=== PATIENT | male | born 1975 | race Caucasian/White ===

== ENCOUNTER 2016-10-20 20:27 | Emergency (ER) | payer OTHER ==
--- NOTE | 2016-10-20 21:46 | ED ---
Suleiman Borden SooYoung, scribed for Jayden Guerrier MD on 10/20/16 at 2141 . HPI Diabetic - HPI Summary HPI Summary: A 41 y/o M presents to ED with c/o of cold bilat hands and feet onset intermittently yesterday and all day today. No similar episodes previously. Pt sees Dr. Hogan, and last saw him in July or August of this year. He states in ED that his hands are feeling better, but his feet are still a little cold. - History Of Current Complaint Chief Complaint: EDGeneral Time Seen by Provider: 10/20/16 21:25 Hx Obtained From: Patient Onset/Duration: Lasting Days - onset yesterday, Still Present Severity Initially: Mild Severity Currently: Mild - Allergies/Home Medications Allergies/Adverse Reactions: Allergies Allergy/AdvReac Type Severity Reaction Status Date / Time No Known Allergies Allergy Verified 03/02/13 16:46 PMH/Surg Hx/FS Hx/Imm Hx Previously Healthy: No Endocrine/Hematology History: Reports: Hx Diabetes Cardiovascular History: Reports: Hx Hypertension Infectious Disease History: No Infectious Disease History: Denies: Traveled Outside the [place] in Last 30 Days - Family History Known Family History: Positive: Cardiac Disease - multiple MIs at early age on paternal side; father CABG, Hypertension, Diabetes - Social History Occupation: Unemployed Lives: With Family Hx Substance Use: No Substance Use Type: Reports: None Review of Systems Positive: Other - pos: cold/numb to hands and feet. Negative: Fever All Other Systems Reviewed And Are Negative: Yes Physical Exam Triage Information Reviewed: Yes Vital Signs On Initial Exam: Initial Vitals Temp Pulse Resp BP Pulse Ox 98.4 F 78 18 141/83 100 10/20/16 20:27 10/20/16 20:27 10/20/16 20:27 10/20/16 20:27 10/20/16 20:27 Vital Signs Reviewed: Yes Appearance: Positive: Well-Appearing, No Pain Distress Skin: Positive: Warm Head/Face: Positive: Normal Head/Face Inspection Eyes: Positive: ANGELLA ENT: Positive: Hearing grossly normal Neck: Positive: Supple Respiratory/Lung Sounds: Positive: Breath Sounds Present Cardiovascular: Positive: RRR Abdomen Description: Positive: Nontender, Soft Bowel Sounds: Positive: Present Musculoskeletal: Positive: Strength/ROM Intact Neurological: Positive: Sensory/Motor Intact, Alert, Oriented to Person Place, Time, Normal Gait Psychiatric: Positive: Affect/Mood Appropriate Diagnostics - Vital Signs Vital Signs Temp Pulse Resp BP Pulse Ox 10/20/16 20:33 98.4 F 78 18 141/83 100 10/20/16 20:27 98.4 F 78 18 141/83 100 - Laboratory Result Diagrams: 10/20/16 22:05 10/20/16 22:05 Lab Statement: Any lab studies that have been ordered have been reviewed, and results considered in the medical decision making process. Re-Evaluation - Re-Evaluation First Eval Change: Improved - results d/w pt Diabetic Course/Dx - Diagnoses Provider Diagnoses: Paresthesia Discharge - Discharge Plan Condition: Stable Disposition: HOME Patient Education Materials: Paresthesia (ED) Referrals: Srini Hogan MD [Primary Care Provider] - 2 Days Additional Instructions: Follow up with your primary care provider in the next two days. Please return to the ED if you experience new or worsening symptoms. The documentation as recorded by the Suleiman rainey SooYoung accurately reflects the service I personally performed and the decisions made by , Jayden Guerrier MD.
[2016-10-20 22:25] LABS: Hematocrit 44 % (42-52); Hemoglobin 15.6 g/dl (14.0-18.0); Mean Corpuscular HGB Conc 35 g/dl (31-36); Mean Corpuscular Hemoglobin 32 pg (27-31); Mean Corpuscular Volume 90 fL (80-94); Mean Platelet Volume 8 um3 (7.4-10.4); Red Blood Count 4.89 10^6/ul (4.0-5.4); Red Cell Distribution Width 13 % (10.5-15); White Blood Count 10.4 10^3/ul (3.5-10.8)
[2016-10-20 22:36] LABS: Albumin 4.8 g/dL (3.2-5.2); EGFR African American 97.9 (>60); EGFR Non-African American 76.1 (>60); Globulin 2.3 g/dL (2-4); Potassium 3.5 mmol/L (3.5-5.0); Total Bilirubin 1.5 mg/dL (0.2-1.0); Total Protein 7.1 g/dL (6.4-8.9)
[2016-10-20 23:42] LABS: Urine Bilirubin Negative (Negative); Urine Glucose Negative (Negative); Urine Nitrite Negative (Negative)
[2016-10-21 00:25] VITALS: BP 128/81
== END 2016-10-21 00:21 | disposition home or self-care (01) ==
LOC: ED 20:27
DX: R20.9 Unspecified disturbances of skin sensation (principal)
CPT/HCPCS: 36415; 80053; 81003; 85025; 99282

== ENCOUNTER 2017-11-27 13:35 | Emergency (ER) | payer OTHER ==
[2017-11-27 15:03] LABS: ABS Basophils 0.1 10^3/ul (0-0.2); ABS Eosinophils 0.1 10^3/ul (0-0.6); ABS Monocytes 0.4 10^3/ul (0-0.8); ABS Neutrophils 3.5 10^3/ul (1.5-7.7); ABS Nucleated RBC 0 10^3/ul; Eosinophil % 1.3 % (0-6); Hematocrit 40 % (42-52); Hemoglobin 14.3 g/dl (14.0-18.0); Lymphocyte % 19.2 % (25-47); Mean Corpuscular HGB Conc 36 g/dl (31-36); Mean Corpuscular Hemoglobin 33 pg (27-31); Mean Corpuscular Volume 91 fL (80-94); Mean Platelet Volume 8.7 um3 (7.4-10.4); Nucleated Red Blood Cells % 0.1; Platelet Count 165 10^3/ul (150-450); Red Blood Count 4.36 10^6/ul (4.00-5.40); Red Cell Distribution Width 13 % (10.5-15)
[2017-11-27 15:04] LABS: Urine Appearance Clear; Urine Blood Negative (Negative); Urine Color Yellow; Urine Ketones Negative (Negative); Urine Protein Negative (Negative); Urine Specific Gravity 1.016 (1.010-1.030); Urine Urobilinogen Negative (Negative)
--- NOTE | 2017-11-27 15:07 | RAD ---
INDICATION: Periumbilical pain COMPARISON: None TECHNIQUE: Noncontrast axial source images were obtained from the hemidiaphragms to the symphysis pubis. This examination was ordered using a renal stone protocol which is performed without oral or intravenous contrast and therefore has inherent limitations when used to evaluate other intra-abdominal or intrapelvic pathology. Consider conventional contrast enhanced imaging if clinically. Lung bases: The lung bases are clear. Liver: The liver is normal in size. Noncontrast imaging shows no evidence of a hepatic mass or ductal dilatation. Gallbladder: There are no calcified gallstones. There is no evidence of wall thickening or pericholecystic fluid.. Spleen: There is moderate splenomegaly. Pancreas: Noncontrast imaging shows no pancreatic mass or ductal dilitation. Adrenal glands: No masses are identified. Kidneys/Bladder: There is no evidence of nephrolithiasis or CT evidence of hydronephrosis. Noncontrast imaging shows no evidence of a renal mass. The bladder is unremarkable.. Adenopathy: There is no evidence of intraperitoneal or retroperitoneal adenopathy. Evaluation is limited without oral contrast. Fluid collections: There are no free or localized fluid collections. Vessels: The aorta and iliac vessels are normal in caliber. There are no significant atherosclerotic changes. The IVC appears normal Pelvic organs: The prostate and seminal vesicles appear normal GI tract: Evaluation of the bowel is limited without oral contrast. The stomach, small bowel, and lower GI tract appear grossly normal. There are no obstructive findings. The appendix is visualized and appears normal. Soft tissues: There is a small fat-containing periumbilical hernia. Osseous structures: There are no acute osseous findings. IMPRESSION: 1. Moderate splenomegaly. 2. Small fat-containing periumbilical hernia. 3. No CT evidence of urolithiasis.
[2017-11-27 15:17] LABS: EGFR Non-African American 81.8 (>60)
[2017-11-27 16:46] VITALS: BP 153/96
--- NOTE | 2017-11-27 16:52 | ED ---
Bhavin Borden Angela, scribed for Kevyn Henry MD on 11/27/17 at 1453 . Abdominal Pain/Male - HPI Summary HPI Summary: This pt is a 42 y/o male presenting to [facility] c/o abd pain x2 days. Pt reports he recently went camping and everything was fine until the last day when he left , two days ago. He developed abd pain which he states "it feels like when you eat something bad, gassy maybe" "it's weird, I can't explain it." Denies trauma or injury to abd. His pain is not aggravated with palpation. His last bowel movement was this morning and notes it was normal. Denies nausea, vomiting, diarrhea, constipation, urinary symptoms, melena, tarry stools. He has never had this pain in the past. PMHx includes umbilical hernia x1 year, psoriasis, diabetes. Denies any abdominal surgeries. Pt has a rash on abd and reports it is his psoriasis. - History of Current Complaint Chief Complaint: EDAbdPain Stated Complaint: ABD PAIN Time Seen by Provider: 11/27/17 14:35 Hx Obtained From: Patient Onset/Duration: Lasting Days, Still Present Timing: Lasting Days Severity Currently: Moderate Pain Intensity: 5 Pain Scale Used: 0-10 Numeric Location: Diffuse Radiates: No Aggravating Factor(s): Nothing Alleviating Factor(s): Nothing Associated Signs And Symptoms: Negative: Cough, Constipation, Urinary Symptoms, Nausea, Vomiting, Diarrhea, Other - melena, tarry stools - Allergies/Home Medications Allergies/Adverse Reactions: Allergies Allergy/AdvReac Type Severity Reaction Status Date / Time No Known Allergies Allergy Verified 11/27/17 13:42 Home Medications: Home Medications Aspirin 81 mg CHEW TAB* [Aspirin Low Dose TAB*] 81 mg PO DAILY 11/27/17 [ History Confirmed 11/27/17] Gemfibrozil TAB* [Lopid TAB*] 600 mg PO DAILY 11/27/17 [History Confirmed 11/27] Lisinopril TAB* [Prinivil TAB 5 MG*] 5 mg PO DAILY 11/27/17 [History Confirmed 11/27/17] Omeprazole CAP* [Prilosec CAP* 20 MG] 20 mg PO DAILY 11/27/17 [History Confirmed 11/27/17] metFORMIN* [Glucophage 500 MG TAB *] 500 mg PO BID 11/27/17 [History Confirmed 11/27/17] PMH/Surg Hx/FS Hx/Imm Hx Endocrine/Hematology History: Reports: Hx Diabetes Cardiovascular History: Reports: Hx Hypertension Infectious Disease History: No Infectious Disease History: Denies: Traveled Outside the [place] in Last 30 Days - Family History Known Family History: Positive: Cardiac Disease - multiple MIs at early age on paternal side; father CABG, Hypertension, Diabetes - Social History Alcohol Use: Rare Hx Substance Use: No Substance Use Type: Reports: None Smoking Status (MU): Unknown if Ever Smoked Review of Systems Negative: Fever, Chills Positive: Abdominal Pain. Negative: Vomiting, Diarrhea, Nausea, Other - constipation Positive: no symptoms reported, see HPI. Negative: dysuria, frequency, hematuria, urgency Positive: Bruising - around abdomen All Other Systems Reviewed And Are Negative: Yes Physical Exam - Summary Physical Exam Summary: Appearance: The patient is well-nourished in no acute distress and in no acute pain. Skin: The skin is warm and dry and skin color reflects adequate perfusion. HEENT: The head is normocephalic and atraumatic. The pupils are equal and reactive. The conjunctivae are clear and without drainage. Nares are patent and without drainage. Mouth reveals moist mucous membranes and the throat is without erythema and exudate. The external ears are intact. The ear canals are patent and without drainage. The tympanic membranes are intact. Neck: the neck is supple with full range of motion and non-tender. There are no carotid bruits. There is no neck vein distension. Respiratory: Chest is non-tender. Lungs are clear to auscultation and breath sounds are symmetrical and equal. Cardiovascular: Heart is regular rate and rhythm. There is no murmur or rub auscultated. There is no peripheral edema and pulses are symmetrical and equal. Abdomen: The abdomen is soft and non-tender. There are normal bowel sounds heard in all four quadrants and there is no organomegaly palpated. Musculoskeletal: There is no back tenderness noted. Extremities are non-tender with full range of motion. There is good capillary refill. There is no peripheral edema or calf tenderness elicited. Neurological: Patient is alert and oriented to person, place and time. Psychiatric: The patient has an appropriate affect and does not exhibit any anxiety or depression. Triage Information Reviewed: Yes Vital Signs On Initial Exam: Initial Vitals Temp Pulse Resp BP Pulse Ox 98.5 F 88 14 130/91 98 11/27/17 13:39 11/27/17 13:39 11/27/17 13:39 11/27/17 13:39 11/27/17 13:39 Vital Signs Reviewed: Yes Diagnostics - Vital Signs Vital Signs Temp Pulse Resp BP Pulse Ox 11/27/17 13:39 98.5 F 88 14 130/91 98 - Laboratory Lab Results: Lab Results 11/27/17 11/27/17 11/27/17 Range/Units 14:49 14:49 14:49 WBC 5.0 (3.5-10.8) 10^3/ul RBC 4.36 (4.00-5.40) 10^6/ul Hgb 14.3 (14.0-18.0) g/dl Hct 40 L (42-52) % MCV 91 (80-94) fL MCH 33 H (27-31) pg MCHC 36 (31-36) g/dl RDW 13 (10.5-15) % Plt Count 165 (150-450) 10^3/ul MPV 8.7 (7.4-10.4) um3 Neut % (Auto) 70.0 (38-83) % Lymph % (Auto) 19.2 L (25-47) % Tate % (Auto) 8.3 H (0-7) % Eos % (Auto) 1.3 (0-6) % Baso % (Auto) 1.2 (0-2) % Absolute Neuts (auto) 3.5 (1.5-7.7) 10^3/ul Absolute Lymphs (auto) 1.0 (1.0-4.8) 10^3/ul Absolute Monos (auto) 0.4 (0-0.8) 10^3/ul Absolute Eos (auto) 0.1 (0-0.6) 10^3/ul Absolute Basos (auto) 0.1 (0-0.2) 10^3/ul Absolute Nucleated RBC 0 10^3/ul Nucleated RBC % 0.1 Sodium 137 (135-145) mmol/L Potassium 3.9 (3.5-5.0) mmol/L Chloride 102 (101-111) mmol/L Carbon Dioxide 25 (22-32) mmol/L Anion Gap 10 (2-11) mmol/L BUN 11 (6-24) mg/dL Creatinine 1.01 (0.67-1.17) mg/dL Est GFR ( Amer) 99.0 (>60) Est GFR (Non-Af Amer) 81.8 (>60) BUN/Creatinine Ratio 10.9 (8-20) Glucose 137 H (70-100) mg/dL Lactic Acid 1.0 (0.5-2.0) mmol/L Calcium 9.4 (8.6-10.3) mg/dL Total Bilirubin 1.00 (0.2-1.0) mg/dL AST 35 (13-39) U/L ALT 50 (7-52) U/L Alkaline Phosphatase 64 (34-104) U/L C-Reactive Protein 5.62 (<8.01) mg/L Total Protein 6.4 (6.4-8.9) g/dL Albumin 4.2 (3.2-5.2) g/dL Globulin 2.2 (2-4) g/dL Albumin/Globulin Ratio 1.9 (1-3) Lipase 29 (11.0-82.0) U/L Urine Color Urine Appearance Urine pH (5-9) Ur Specific Benson (1.010-1.030) Urine Protein (Negative) Urine Ketones (Negative) Urine Blood (Negative) Urine Nitrate (Negative) Urine Bilirubin (Negative) Urine Urobilinogen (Negative) Ur Leukocyte Esterase (Negative) Urine Glucose (Negative) 11/27/17 Range/Units 14:50 WBC (3.5-10.8) 10^3/ul RBC (4.00-5.40) 10^6/ul Hgb (14.0-18.0) g/dl Hct (42-52) % MCV (80-94) fL MCH (27-31) pg MCHC (31-36) g/dl RDW (10.5-15) % Plt Count (150-450) 10^3/ul MPV (7.4-10.4) um3 Neut % (Auto) (38-83) % Lymph % (Auto) (25-47) % Tate % (Auto) (0-7) % Eos % (Auto) (0-6) % Baso % (Auto) (0-2) % Absolute Neuts (auto) (1.5-7.7) 10^3/ul Absolute Lymphs (auto) (1.0-4.8) 10^3/ul Absolute Monos (auto) (0-0.8) 10^3/ul Absolute Eos (auto) (0-0.6) 10^3/ul Absolute Basos (auto) (0-0.2) 10^3/ul Absolute Nucleated RBC 10^3/ul Nucleated RBC % Sodium (135-145) mmol/L Potassium (3.5-5.0) mmol/L Chloride (101-111) mmol/L Carbon Dioxide (22-32) mmol/L Anion Gap (2-11) mmol/L BUN (6-24) mg/dL Creatinine (0.67-1.17) mg/dL Est GFR ( Amer) (>60) Est GFR (Non-Af Amer) (>60) BUN/Creatinine Ratio (8-20) Glucose (70-100) mg/dL Lactic Acid (0.5-2.0) mmol/L Calcium (8.6-10.3) mg/dL Total Bilirubin (0.2-1.0) mg/dL AST (13-39) U/L ALT (7-52) U/L Alkaline Phosphatase (34-104) U/L C-Reactive Protein (<8.01) mg/L Total Protein (6.4-8.9) g/dL Albumin (3.2-5.2) g/dL Globulin (2-4) g/dL Albumin/Globulin Ratio (1-3) Lipase (11.0-82.0) U/L Urine Color Yellow Urine Appearance Clear Urine pH 5.0 (5-9) Ur Specific Benson 1.016 (1.010-1.030) Urine Protein Negative (Negative) Urine Ketones Negative (Negative) Urine Blood Negative (Negative) Urine Nitrate Negative (Negative) Urine Bilirubin Negative (Negative) Urine Urobilinogen Negative (Negative) Ur Leukocyte Esterase Negative (Negative) Urine Glucose Negative (Negative) Result Diagrams: 11/27/17 14:49 11/27/17 14:49 Lab Statement: Any lab studies that have been ordered have been reviewed, and results considered in the medical decision making process. - CT Abdomen/Pelvis CT CT Interpretation: No Acute Changes - IMPRESSION: 1. Moderate splenomegaly. 2. Small fat-containing periumbilical hernia. 3. No CT evidence of urolithiasis. Dr. Henry has reviewed this radiology report. CT Interpretation Completed By: Radiologist Re-Evaluation - Re-Evaluation First Eval Re-Evaluation Time: 16:21 Comment: I reviewed lab and CT results with the pt. He will be discharged home. Abdominal Pain Fem Course/Dx - Course Course Of Treatment: Mr. Armstrong presented with vague abdominal pain and only mild periumbilical tenderness. His workup including CT and labs was negative and I recommended close follow-up. - Diagnoses Provider Diagnoses: Abdominal pain Discharge - Sign-Out/Discharge Documenting (check all that apply): Discharge/Admit/Transfer - Discharge - Discharge Plan Condition: Stable Disposition: HOME Patient Education Materials: Abdominal Pain (ED) Referrals: Srini Hogan MD [Primary Care Provider] - Additional Instructions: Please follow up with your primary care provider in 2-3 days. RETURN TO THE ED FOR ANY WORSENING SYMPTOMS. - Billing Disposition and Condition Condition: STABLE Disposition: Home The documentation as recorded by the Bhavin rainey Angela accurately reflects the service I personally performed and the decisions made by me, Kevyn Henry MD.
== END 2017-11-27 16:45 | disposition home or self-care (01) ==
LOC: ED 13:35
DX: R10.33 Periumbilical pain (principal); R16.1 Splenomegaly, not elsewhere classified; K42.9 Umbilical hernia without obstruction or gangrene; E11.9 Type 2 diabetes mellitus without complications; I10 Essential (primary) hypertension; Z79.82 Long term (current) use of aspirin; Z79.899 Other long term (current) drug therapy; Z79.84 Long term (current) use of oral hypoglycemic drugs; Z82.49 Family history of ischemic heart disease and other diseases of the circulatory system
CPT/HCPCS: 36415; 74176; 80053; 81003; 83605; 83690; 85025; 86140; 99282

== ENCOUNTER 2018-05-03 11:30 | Emergency (ER) | payer OTHER ==
[2018-05-03 12:08] LABS: ABS Basophils 0 10^3/ul (0-0.2); ABS Eosinophils 0.1 10^3/ul (0-0.6); ABS Lymphocytes 0.7 10^3/ul (1.0-4.8); ABS Monocytes 0.4 10^3/ul (0-0.8); ABS Neutrophils 5.4 10^3/ul (1.5-7.7); ABS Nucleated RBC 0 10^3/ul; Eosinophil % 1.2 %; Hematocrit 45 % (42-52); Mean Corpuscular HGB Conc 35 g/dl (31-36); Mean Corpuscular Hemoglobin 32 pg (27-31); Mean Corpuscular Volume 91 fL (80-94); Mean Platelet Volume 8.5 fL (7.4-10.4); Nucleated Red Blood Cells % 0.6; Platelet Count 195 10^3/ul (150-450); Red Blood Count 5.01 10^6/ul (4.00-5.40); Red Cell Distribution Width 13 % (10.5-15); White Blood Count 6.7 10^3/ul (3.5-10.8)
--- NOTE | 2018-05-03 12:09 | ED ---
HPI Chest Pain - HPI Summary HPI Summary: A 43 y/o male accompanied by a friend presents to the ED c/o chest pain. Currently, the patient is still experiencing mid-sternal chest pain reaching 6/ 10 in severity. In the ED room, the patient has a pulse of 81 BPM, O2 saturation of 99%, and blood pressure of 159/107. As per triage, "difficulty breathing, tightness in chest. cardiac history(specifics unknown). no pulm history. no other complaints at this time". According to the patient, he has been experiencing chest pain since yesterday last night. He noted that the pain feels like a pressure and it feels funny to breath. He noted that he felt good this AM, but then it came back. He is not sure what could have triggered it. PMHx of DM, HBP, psoriasis. SHx of some ETOH and marijuana. - History of Current Complaint Chief Complaint: EDChestPainROMI Time Seen by Provider: 05/03/18 11:41 Hx Obtained From: Patient Onset/Duration: Started Days Ago, Still Present Timing: Intermittent Initial Severity: Moderate Current Severity: Moderate Pain Intensity: 5 Pain Scale Used: 0-10 Numeric Chest Pain Location: Mid Sternal Chest Pain Radiates: No Character: Pressure/Squeezing Aggravating Factor(s): Nothing Alleviating Factor(s): Nothing Associated Signs and Symptoms: Positive: Chest Pain - Allergy/Home Medications Allergies/Adverse Reactions: Allergies Allergy/AdvReac Type Severity Reaction Status Date / Time No Known Allergies Allergy Verified 05/03/18 11:39 PMH/Surg Hx/FS Hx/Imm Hx Endocrine/Hematology History: Reports: Hx Diabetes Cardiovascular History: Reports: Hx Hypertension - Surgical History Surgery Procedure, Year, and Place: NO PRIOR SURGERIES NOTED. Infectious Disease History: No Infectious Disease History: Denies: Traveled Outside the [place] in Last 30 Days - Family History Known Family History: Positive: Cardiac Disease - multiple MIs at early age on paternal side; father CABG, Hypertension, Diabetes - Social History Alcohol Use: Rare Hx Substance Use: No Substance Use Type: Reports: Marijuana Smoking Status (MU): Never Smoked Tobacco Review of Systems Negative: Fever Positive: Chest Pain All Other Systems Reviewed And Are Negative: Yes Physical Exam - Summary Physical Exam Summary: GENERAL: Patient is a well-developed and nourished male who is lying comfortable in the stretcher. Patient is not in any acute respiratory distress. HEAD AND FACE: Normocephalic EYES: PERRLA, EOMI x 2. EARS: Hearing grossly intact. MOUTH: Oropharynx within normal limits. NECK: Supple, trachea is midline, no adenopathy, no JVD, no carotid bruit. CHEST: Symmetric, no tenderness at palpation LUNGS: Clear to auscultation bilaterally. No wheezing. Faint crackles on left side. CVS: Regular rate and rhythm, S1 and S2 present, no murmurs or gallops appreciated. ABDOMEN: Soft, non-tender. Bowel sounds are normal. No abdominal abnormal pulsations. EXTREMITIES: Full ROM in all major joints, no edema, no cyanosis or clubbing. NEURO: Alert and oriented x 3. No acute neurological deficits. Speech is normal and follows commands. SKIN: Dry and warm. Psoriatic rash on extremities. Triage Information Reviewed: Yes Vital Signs On Initial Exam: Initial Vitals Temp Pulse Resp BP Pulse Ox 97.9 F 78 18 154/95 98 05/03/18 11:36 05/03/18 11:36 05/03/18 11:36 05/03/18 11:36 05/03/18 11:36 Vital Signs Reviewed: Yes Diagnostics - Vital Signs Vital Signs Temp Pulse Resp BP Pulse Ox 05/03/18 11:50 78 19 159/107 99 05/03/18 11:49 80 19 99 05/03/18 11:36 97.9 F 78 18 154/95 98 - Laboratory Result Diagrams: 05/03/18 11:48 05/03/18 11:48 Lab Statement: Any lab studies that have been ordered have been reviewed, and results considered in the medical decision making process. - Radiology CXR Radiology Interpretation Completed By: Radiologist - No radiographic evidence for acute cardiopulmonary abnormality on this portable chest x-ray. ED PHYSICIAN REVIEWED THIS RADIOLOGY REPORT. - EKG 1154 Cardiac Rate: NL - 75 BPM EKG Rhythm: Sinus Rhythm - 75 BPM EKG Comparison: Other - SIMILAR TO PREVIOUS EKG ON 09/11/2010 Summary of EKG Findings: ST ELEVATION CONSISTENT WITH EER Re-Evaluation - Re-Evaluation First Eval Re-Evaluation Time: 13:50 Change: Improved Comment: PATIENT REPORTS CHEST PAIN HAS IMPROVED POST-TREATMENT OF NTG AND ASPIRIN. PATIENT WOULD LIKE TO LEAVE [facility] AFTER NEXT TROPONIN CHECK. Chest Pain Course/Dx - Course Course Of Treatment: A 43 y/o male accompanied by a friend presents to the ED c/ o chest pain. Currently, the patient is still experiencing mid-sternal chest pain reaching 6/10 in severity. In the ED room, the patient has a pulse of 81 BPM, O2 saturation of 99%, and blood pressure of 159/107. According to the patient, he has been experiencing chest pain since yesterday last night. He noted that the pain feels like a pressure and it feels funny to breath. He noted that he felt good this AM, but then it came back. He is not sure what could have triggered it. Physical examination revealed psoriatic rash on extremities and faint crackles on left side. A CXR revealed no radiographic evidence for acute cardiopulmonary abnormality on this portable chest x-ray. An EKG revealed NSR of 75 BPM, ST elevation consistent with EER, similar to previous EKG done on 09/11/2010. Hematology and urinalysis was done. Labs were insignificant. In the ED course, the patient received Aspirin and NTG. Upon re- evaluation, the patient stated that his chest pain had improved with the treatment of NTG and Aspirin. It was recommended that the patient should stay for full evaluation and informed a stress test will not be done till Saturday. Patient insisted that he leave AMA and preferred to go home and follow up with PCP. Patient did agree to stay until the next Troponin check at 1500. If it comes back normal, the patient would like to leave AMA. Results of Troponin were 0.00. Patient will be discharged AMA with a diagnosis of chest pain. Patient is awake, alert, and oriented. Patient is capable to make informed decision and he is allowed to sign-out against medical advice. Patient is to follow up with cardiology and primary care provider in 1-3 days. Patient is to return to ED for any new or worsening symptoms. Patient is agreeable with this plan. - Diagnoses Provider Diagnoses: Chest pain Discharge - Sign-Out/Discharge Documenting (check all that apply): Patient Departure - DISCHARGE - Discharge Plan Condition: Stable Disposition: AGAINST MEDICAL ADVICE Patient Education Materials: Chest Pain (ED) Referrals: Srini Hogan MD [Primary Care Provider] - 3 Days Chilango Wooten MD [Medical Doctor] - 3 Days Additional Instructions: FOLLOW UP WITH PRIMARY CARE PROVIDER AND CARDIOLOGY IN 1-3 DAYS. RETURN TO ED FOR ANY NEW OR WORSENING SYMPTOMS. - Billing Disposition and Condition Condition: STABLE Disposition: Against Medical Advice - Attestation Statements Document Initiated by Payton: Yes Documenting Scribe: Tucker Barbour Provider For Whom Payton is Documenting (Include Credential): Derek Crowley MD Scribe Attestation: Tucker Borden, scribed for Derek Crowley MD on 05/03/18 at 1805. Scribe Documentation Reviewed: Yes Provider Attestation: The documentation as recorded by the Tucker rainey accurately reflects the service I personally performed and the decisions made by , Derek Crowley MD Status of Scribe Document: Viewed
[2018-05-03 12:16] LABS: INR 1.02 (0.77-1.02)
[2018-05-03 12:22] LABS: Urine Appearance Clear; Urine Blood Negative (Negative); Urine Color Yellow; Urine Ketones Negative (Negative); Urine Protein Negative (Negative); Urine Urobilinogen Negative (Negative)
[2018-05-03 12:26] LABS: EGFR Non-African American 70.1 (>60)
[2018-05-03] MEDS ORDERED: Nitroglycerin TAB 0.4 MG* 0.4 MG TAB SL ONE (12:31)
[2018-05-03] MEDS ORDERED: Aspirin 81 mg CHEW TAB* 81 MG TAB.CHEW PO ONE (12:31)
[2018-05-03 16:07] VITALS: BP 128/74
== END 2018-05-03 16:07 | disposition left against medical advice (07) ==
LOC: ED 11:30
DX: R07.89 Other chest pain (principal); Z82.49 Family history of ischemic heart disease and other diseases of the circulatory system; Z83.3 Family history of diabetes mellitus
CPT/HCPCS: 36415; 71045; 80053; 80307; 81003; 83605; 83735; 83880; 84484; 85025; 85379; 85610; 85730; 93005; 99284; A9270-GY

== ENCOUNTER 2018-05-05 14:36 | Observation (INO) | payer OTHER ==
[2018-05-05 16:12] LABS: ABS Basophils 0 10^3/ul (0-0.2); ABS Eosinophils 0.1 10^3/ul (0-0.6); ABS Monocytes 0.4 10^3/ul (0-0.8); ABS Neutrophils 4.6 10^3/ul (1.5-7.7); ABS Nucleated RBC 0 10^3/ul; Eosinophil % 0.9 %; Hematocrit 44 % (42-52); Hemoglobin 15.7 g/dl (14.0-18.0); Lymphocyte % 16.7 %; Mean Corpuscular HGB Conc 36 g/dl (31-36); Mean Corpuscular Hemoglobin 32 pg (27-31); Mean Corpuscular Volume 90 fL (80-94); Mean Platelet Volume 8.4 fL (7.4-10.4); Nucleated Red Blood Cells % 0.1; Platelet Count 163 10^3/ul (150-450); Red Blood Count 4.91 10^6/ul (4.00-5.40); Red Cell Distribution Width 13 % (10.5-15); White Blood Count 6.1 10^3/ul (3.5-10.8)
[2018-05-05 16:15] LABS: INR 1.04 (0.77-1.02)
[2018-05-05] MEDS ORDERED: Aspirin 81 mg CHEW TAB* 81 MG TAB.CHEW PO ONE (17:17)
[2018-05-05] MEDS ORDERED: Nitroglycerin TAB 0.4 MG* 0.4 MG TAB SL ONE (17:17)
--- NOTE | 2018-05-05 17:22 | ED ---
Shortness of Breath - HPI Summary HPI Summary: This patient is a 43 year old M presenting to [facility] with a chief complaint of difficulty breathing since 05/03/2018 following an angry encounter. The patient rates the pain 3/10 in severity currently while lying down. Symptoms aggravated by walking or standing up. Symptoms alleviated by lying down. Patient reports CP (described as pressure), back discomfort, dizziness, feelings of near- syncope, diaphoresis, and nausea. Patient has a PMHx of cardiac issues ( hospitalized in 2010 for a heart issue), diabetes, HLD, and HTN. - History of Current Complaint Chief Complaint: EDShortnessOfBreath Time Seen by Provider: 05/05/18 15:16 Hx Obtained From: Patient Onset/Duration: Sudden Onset, Lasting Days - Since 05/03/2018, Still Present Dyspnea At: Exertion Aggrevating Factors: Movement - Standing up and walking Alleviating Factors: Other - Lying down Associated Signs & Symptoms: Chest Pain Unrelated to Cough - Described as chest pressure, Diaphoresis - Allergy/Home Medications Allergies/Adverse Reactions: Allergies Allergy/AdvReac Type Severity Reaction Status Date / Time No Known Allergies Allergy Verified 05/05/18 14:50 PMH/Surg Hx/FS Hx/Imm Hx Endocrine/Hematology History: Reports: Hx Diabetes Cardiovascular History: Reports: Hx Hypertension - Surgical History Surgery Procedure, Year, and Place: NO PRIOR SURGERIES NOTED. Infectious Disease History: No Infectious Disease History: Denies: Traveled Outside the [place] in Last 30 Days - Family History Known Family History: Positive: Cardiac Disease - multiple MIs at early age on paternal side; father CABG, Hypertension, Diabetes - Social History Occupation: Unemployed Alcohol Use: Rare Hx Substance Use: No Substance Use Type: Reports: Marijuana Smoking Status (MU): Former Smoker Review of Systems Positive: Skin Diaphoresis Positive: Chest Pain - "Chest pressure" Positive: Shortness Of Breath Positive: Nausea Positive: Other - Back discomfort Neurological: Other - Dizziness, feelings of near-syncope All Other Systems Reviewed And Are Negative: Yes Physical Exam - Summary Physical Exam Summary: VITAL SIGNS: Reviewed. GENERAL: Patient is a well-developed and nourished MALE who is lying comfortable in the stretcher. Patient is not in any acute respiratory distress. HEAD AND FACE: No signs of trauma. No ecchymosis, hematomas or skull depressions. No sinus tenderness. EYES: PERRLA, EOMI x 2, No injected conjunctiva, no nystagmus. EARS: Hearing grossly intact. Ear canals and tympanic membranes are within normal limits. MOUTH: Oropharynx within normal limits. NECK: Supple, trachea is midline, no adenopathy, no JVD, no carotid bruit, no c- spine tenderness, neck with full ROM. CHEST: Symmetric, no tenderness at palpation LUNGS: Clear to auscultation bilaterally. No wheezing or crackles. CVS: Regular rate and rhythm, S1 and S2 present, no murmurs or gallops appreciated. ABDOMEN: Soft, non-tender. No signs of distention. No rebound no guarding, and no masses palpated. Bowel sounds are normal. EXTREMITIES: FROM in all major joints, no edema, no cyanosis or clubbing. NEURO: Alert and oriented x 3. No acute neurological deficits. Speech is normal and follows commands. SKIN: Dry and warm Triage Information Reviewed: Yes Vital Signs On Initial Exam: Initial Vitals Temp Pulse Resp BP Pulse Ox 99.0 F 81 16 138/90 100 05/05/18 14:45 05/05/18 14:45 05/05/18 14:45 05/05/18 14:45 05/05/18 14:45 Vital Signs Reviewed: Yes Diagnostics - Vital Signs Vital Signs Temp Pulse Resp BP Pulse Ox 05/05/18 14:45 99.0 F 81 16 138/90 100 - Laboratory Lab Results: Lab Results 05/05/18 05/05/18 05/05/18 Range/Units 15:48 15:48 15:48 WBC 6.1 (3.5-10.8) 10^3/ul RBC 4.91 (4.00-5.40) 10^6/ul Hgb 15.7 (14.0-18.0) g/dl Hct 44 (42-52) % MCV 90 (80-94) fL MCH 32 H (27-31) pg MCHC 36 (31-36) g/dl RDW 13 (10.5-15) % Plt Count 163 (150-450) 10^3/ul MPV 8.4 (7.4-10.4) fL Neut % (Auto) 74.4 % Lymph % (Auto) 16.7 % Carson % (Auto) 7.3 % Eos % (Auto) 0.9 % Baso % (Auto) 0.7 % Absolute Neuts (auto) 4.6 (1.5-7.7) 10^3/ul Absolute Lymphs (auto) 1.0 (1.0-4.8) 10^3/ul Absolute Monos (auto) 0.4 (0-0.8) 10^3/ul Absolute Eos (auto) 0.1 (0-0.6) 10^3/ul Absolute Basos (auto) 0 (0-0.2) 10^3/ul Absolute Nucleated RBC 0 10^3/ul Nucleated RBC % 0.1 INR (Anticoag Therapy) 1.04 H (0.77-1.02) APTT 32.1 (26.0-36.3) seconds D-Dimer, Quantitative < 200 (Less Than 230) ng/mL Sodium 138 (135-145) mmol/L Potassium 3.8 (3.5-5.0) mmol/L Chloride 104 (101-111) mmol/L Carbon Dioxide 24 (22-32) mmol/L Anion Gap 10 (2-11) mmol/L BUN 15 (6-24) mg/dL Creatinine 1.06 (0.67-1.17) mg/dL Est GFR ( Amer) 93.2 (>60) Est GFR (Non-Af Amer) 77.0 (>60) BUN/Creatinine Ratio 14.2 (8-20) Glucose 142 H (70-100) mg/dL Calcium 10.0 (8.6-10.3) mg/dL Magnesium 1.8 L (1.9-2.7) mg/dL Total Bilirubin 1.60 H (0.2-1.0) mg/dL AST 24 (13-39) U/L ALT 37 (7-52) U/L Alkaline Phosphatase 61 (34-104) U/L Troponin I 0.00 (<0.04) ng/mL B-Natriuretic Peptide (<=100) pg/mL Total Protein 6.6 (6.4-8.9) g/dL Albumin 4.5 (3.2-5.2) g/dL Globulin 2.1 (2-4) g/dL Albumin/Globulin Ratio 2.1 (1-3) TSH 0.75 (0.34-5.60) mcIU/mL 05/05/18 Range/Units 15:48 WBC (3.5-10.8) 10^3/ul RBC (4.00-5.40) 10^6/ul Hgb (14.0-18.0) g/dl Hct (42-52) % MCV (80-94) fL MCH (27-31) pg MCHC (31-36) g/dl RDW (10.5-15) % Plt Count (150-450) 10^3/ul MPV (7.4-10.4) fL Neut % (Auto) % Lymph % (Auto) % Carson % (Auto) % Eos % (Auto) % Baso % (Auto) % Absolute Neuts (auto) (1.5-7.7) 10^3/ul Absolute Lymphs (auto) (1.0-4.8) 10^3/ul Absolute Monos (auto) (0-0.8) 10^3/ul Absolute Eos (auto) (0-0.6) 10^3/ul Absolute Basos (auto) (0-0.2) 10^3/ul Absolute Nucleated RBC 10^3/ul Nucleated RBC % INR (Anticoag Therapy) (0.77-1.02) APTT (26.0-36.3) seconds D-Dimer, Quantitative (Less Than 230) ng/mL Sodium (135-145) mmol/L Potassium (3.5-5.0) mmol/L Chloride (101-111) mmol/L Carbon Dioxide (22-32) mmol/L Anion Gap (2-11) mmol/L BUN (6-24) mg/dL Creatinine (0.67-1.17) mg/dL Est GFR ( Amer) (>60) Est GFR (Non-Af Amer) (>60) BUN/Creatinine Ratio (8-20) Glucose (70-100) mg/dL Calcium (8.6-10.3) mg/dL Magnesium (1.9-2.7) mg/dL Total Bilirubin (0.2-1.0) mg/dL AST (13-39) U/L ALT (7-52) U/L Alkaline Phosphatase (34-104) U/L Troponin I (<0.04) ng/mL B-Natriuretic Peptide 9 (<=100) pg/mL Total Protein (6.4-8.9) g/dL Albumin (3.2-5.2) g/dL Globulin (2-4) g/dL Albumin/Globulin Ratio (1-3) TSH (0.34-5.60) mcIU/mL Result Diagrams: 05/05/18 15:48 05/05/18 15:48 Lab Statement: Any lab studies that have been ordered have been reviewed, and results considered in the medical decision making process. - Radiology Chest X-Ray Radiology Interpretation Completed By: Radiologist Summary of Radiographic Findings: 16:37. NO ACTIVE CARDIOPULMONARY DISEASE. ED Physician has reviewed this imaging report. - EKG 15:10 Cardiac Rate: NL - 60 BPM EKG Rhythm: Sinus Rhythm ST Segment: Normal EKG Comparison: No Significant Change - Similar to 05/03/2018 Summary of EKG Findings: Hyperactive T waves Course/Dx - Course Assessment/Plan: This patient is a 43 year old M presenting to [facility] with a chief complaint of difficulty breathing since 05/03/2018 following an angry encounter. The patient rates the pain 3/10 in severity currently while lying down. Symptoms aggravated by walking or standing up. Symptoms alleviated by lying down. Patient reports CP (described as pressure), back discomfort, dizziness, feelings of near-syncope, diaphoresis, and nausea. Patient has a PMHx of cardiac issues (hospitalized in 2010 for a heart issue), diabetes, HLD, and HTN. Blood tests without any significant abnormality, troponin 0.00. D- dimer is less than 200. Therefore, no suspicion for a pulmonary emboli. However the patients symptoms are on exertion when he developed the chest pain. This chest pain is associated with shortness of breath, dizziness occasionally nausea and occasional diaphoresis. The patient has history of hypertension, diabetes, and high cholesterol as well as angina therefore the patient has a high risk of having an acute coronary syndrome. In the ED course the patient was given aspirin and nitroglycerin. He reports improvement after medications. At this time I discussed my physical exam, findings and test results with Dr. Clemons from the hospital services who accepted the patient for admission. At this point the patient is hemodynamically stable alert and oriented 3. - Diagnoses Differential Diagnosis/HQI/PQRI: Positive: CHF, Chest Wall Pain, COPD Exacerbation, [place], Pneumonia, Unstable Angina Provider Diagnoses: Angina of effort - Physician Notifications Discussed Care of Patient With: Roberto Clemons - Hospitalist Time Discussed With Above Provider: 18:00 Instructed by Provider To: Admit As Inpatient Discharge - Sign-Out/Discharge Documenting (check all that apply): Patient Departure - Admit to Roberto Clemons MD - Discharge Plan Condition: Stable Disposition: ADMITTED TO [facility] Referrals: Srini Hogan MD [Primary Care Provider] - - Billing Disposition and Condition Condition: STABLE Disposition: Admitted to [facility] - Attestation Statements Document Initiated by Scribe: Yes Documenting Scribe: Rogers Thornton Provider For Whom Opalibe is Documenting (Include Credential): Cole Guevara MD Scribe Attestation: Rogers Borden, scribed for Cole Guevara MD on 05/05/18 at 1858. Scribe Documentation Reviewed: Yes Provider Attestation: The documentation as recorded by the Rogers rainey accurately reflects the service I personally performed and the decisions made by me, Cole Guevara MD Status of Scribe Document: Viewed
[2018-05-05] MEDS ORDERED: Acetaminophen TAB* 325 MG PO PRN (19:11)
[2018-05-05] MEDS ORDERED: Dextrose 50% Syringe 50 ML* 25 GM/50 ML SYRINGE IV PUSH PRN (19:11)
[2018-05-05] MEDS ORDERED: Magnesium Sulfate 2 GM IV* 2 GM/50 ML BAG IVPB ONE (19:16)
--- NOTE | 2018-05-05 21:09 | HP ---
CC: Dr. Hogan * HISTORY AND PHYSICAL: DATE OF ADMISSION: 05/05/18 PRIMARY CARE PROVIDER: Dr. Hogan. ATTENDING PHYSICIAN WHILE IN THE HOSPITAL: Dr. Gisel Nolasco * (report dictated by Deirdre Davis NP). CHIEF COMPLAINT: Chest pain. HISTORY OF PRESENT ILLNESS: Mr. Armstrong is a 43-year-old male patient, who carries a history of diabetes, he has a history of hypertension, hyperlipidemia , untreated psoriasis and possibly psoriatic arthritis, with a history of obesity, coming in today stating that he has noticed since the weekend, he has had exertional chest discomfort, tightness. He has noted that whenever he tries to get up and he is moving around and exerting himself, he gets lightheaded, he gets sweaty, he gets tightness in his chest, he feels short of breath. He just says he has not been feeling well. He says that he has been having this discomfort. He says that when he stops doing the exertion, the discomfort goes away, he feels better, but he noticed that it was progressing throughout the weekend. He actually came in on the weekend on Saturday, was offered a stress test on Saturday, but he declined and he went home and the symptoms just did not get any better over the weekend. He denies any fevers or chills. Denies having any abdominal pain. No vomiting, no diarrhea. He denied any change in medications. He came into the ED today. He does have a family history. He used to be a smoker. Because of his risk factors and the fact that he did have chest discomfort, we were asked to evaluate for admission. PAST MEDICAL HISTORY: Significant for: 1. Psoriasis, untreated. 2. Diabetes. 3. GERD. 4. Hyperlipidemia. 5. Hypertension. 6. Question of psoriatic arthritis. PAST SURGICAL HISTORY: Denied. MEDICATIONS: Home meds include: 1. Metformin 500 mg p.o. b.i.d. 2. Prilosec 20 mg daily. 3. Lisinopril 5 mg daily. 4. Lopid 600 mg p.o. daily. 5. Aspirin 81 mg daily. ALLERGIES TO MEDICATIONS: Include no known drug allergies. FAMILY HISTORY: His mother had breast cancer. Father had a history of CAD in his 50s. SOCIAL HISTORY: He used to be a smoker. He quit in 2000. He rarely drinks alcohol. He is , with children. Surrogate decision maker is his . REVIEW OF SYSTEMS: There is no documented fever. He denied having any significant weight change. Denied having any double vision. There is no ear discharge. Denies any rhinorrhea. No sore throat. No thyroid enlargement. Chest pain per my HPI. There was no orthopnea, no nocturnal dyspnea. He denied having any abdominal pain. There was no nausea, no vomiting. No dysuria , no frequency. No seizure, no loss of consciousness. No pruritus and no skin ulcerations. Review of 14 systems was completed, all others negative. PHYSICAL EXAMINATION GENERAL: At this time, Mr. Armstrong is a 43-year-old male patient. He is sitting in the ED stretcher. He does not appear to be in any acute distress. He appears to be well nourished and well developed. VITAL SIGNS: Blood pressure 138/90 with a pulse of 81, respirations 16, O2 sat 100%, temperature 99.0. HEENT: Head: Atraumatic and normocephalic. Eyes: EOMs intact. Sclerae anicteric and not pale. Throat: Oral mucosa appears to be moist. No oropharyngeal erythema. NECK: Supple. LUNGS: Clear to auscultation. No wheezes, rales, or rhonchi. HEART: Sounds S1, S2. He had a regular rate and rhythm. No murmurs, rubs, or gallops. ABDOMEN: Soft. It was flat, nontender. Bowel sounds present. EXTREMITIES: Pulses were 2+ throughout. He is moving all 4 extremities with 5/ 5 strength. NEUROLOGIC: He is awake, he is alert, he is oriented x3. Tongue midline. Housekeeping Room Inspector were equal. No gross focal deficits. SKIN: Intact. DIAGNOSTIC STUDIES/LAB DATA: WBC of 6.1, RBC of 4.91, hemoglobin 15.7, hematocrit 44, platelet count 163. INR 1.04, PTT 32.1, D-dimer less than 200. Sodium 138, potassium 3.8, chloride 104, bicarb 24, BUN 15, creatinine of 1.06 , glucose 142, calcium 10, mag 1.8. Total bili 1.6, AST 24, ALT 34, alk phos 61. Serial troponins again were 0, he has had two 3 hours apart. BNP was 9. TSH of 0.75. He had a chest x-ray obtained today, impression: No active cardiopulmonary disease. There was an EKG obtained today as well, which shows a normal sinus rhythm, rate of . No ST elevation was noted or T-wave inversions. He does have early repol. When you look to the previous EKG that pattern looks similar from 2 days ago, no acute changes were noted. Old medical records were reviewed. ASSESSMENT AND PLAN: Mr. Armstrong is a 43-year-old male patient coming into the ED today with complaints of chest discomfort, exertional in nature. He has had it since over the weekend, getting worse. We were asked to evaluate for admission. He will be admitted under observation status for: 1. Chest pain. He has significant risk factors for acute coronary syndrome. I am worried that this could be early signs of possible angina and unstable angina. Fortunately, he is not having it at rest and at this point his troponins have been negative and his EKG is stable, but I do think he deserves a stress test, which I will order in the morning. We will get one more troponin. We will get an EKG in the morning as well and we will check his lipid panel and A1c. He is on aspirin already. We will continue with this and we will continue to monitor. 2. Diabetes. We will put him on lispro sliding scale. 3. Gastroesophageal reflux disease. Continue PPI therapy. 4. Hyperlipidemia. Continue Lopid. We will check lipids in the morning. 5. Hypertension. Continue meds as prescribed. 6. History of psoriasis. Follow up with his PCP. 7. DVT prophylaxis. I have ordered heparin subcu. 8. Code status. Full code. 9. Fluids, electrolytes, and nutrition. He can have a heart-healthy diet and then he will be n.p.o. after midnight. TIME SPENT: On the admission was 60 minutes, greater than half of the time was spent [id number] with the patient obtaining my history and physical, other half of the time was spent going over the plan of care with the patient and implementing plan of care. I did discuss the plan of care with my attending, Dr. Nolasco; she is in agreement. DEIRDRE DAVIS, SCOURING PADS SUPERVISOR [id number]/[facility] #: [id number] EUGENIO
[2018-05-05] MEDS: Heparin VIAL(*) 5000 UNITS/ML VIAL (FIVE THOUSAND) SUBCUT SCH (21:37)
[2018-05-06] MEDS: Heparin VIAL(*) 5000 UNITS/ML VIAL (FIVE THOUSAND) SUBCUT SCH (06:01)
[2018-05-06 06:56] LABS: ABS Basophils 0.1 10^3/ul (0-0.2); ABS Eosinophils 0.1 10^3/ul (0-0.6); ABS Lymphocytes 1.2 10^3/ul (1.0-4.8); ABS Monocytes 0.5 10^3/ul (0-0.8); ABS Neutrophils 4.1 10^3/ul (1.5-7.7); ABS Nucleated RBC 0 10^3/ul; Eosinophil % 1.3 %; Hematocrit 43 % (42-52); Hemoglobin 15.4 g/dl (14.0-18.0); Lymphocyte % 20.5 %; Mean Corpuscular HGB Conc 36 g/dl (31-36); Mean Corpuscular Hemoglobin 33 pg (27-31); Mean Corpuscular Volume 91 fL (80-94); Mean Platelet Volume 8.9 fL (7.4-10.4); Nucleated Red Blood Cells % 0.6; Platelet Count 178 10^3/ul (150-450); Red Blood Count 4.74 10^6/ul (4.00-5.40); Red Cell Distribution Width 13 % (10.5-15); White Blood Count 5.9 10^3/ul (3.5-10.8)
[2018-05-06 08:04] LABS: EGFR Non-African American 64.2 (>60)
[2018-05-06] MEDS ORDERED: Omeprazole CAP* 20 MG PO SCH (09:00)
[2018-05-06] MEDS ORDERED: Gemfibrozil TAB* 600 MG PO SCH (09:00)
[2018-05-06] MEDS ORDERED: Aspirin 81 mg CHEW TAB* 81 MG TAB.CHEW PO SCH ×2 (09:00)
[2018-05-06] MEDS ORDERED: Lisinopril TAB* 5 MG PO SCH (09:00)
[2018-05-06] MEDS: Insulin LISPRO* 1 UNITS UNIT SUBCUT SCH ×2 (10:00→12:01)
[2018-05-06 12:08] VITALS: BP 138/88
--- NOTE | 2018-05-06 23:15 | DS ---
CC: Dr. Srini Hogan.* DISCHARGE SUMMARY: DATE OF ADMISSION: 05/05/18 DATE OF DISCHARGE: 05/06/18 FINAL DISCHARGE DIAGNOSES: 1. Chest pain, atypical, suspect probably musculoskeletal. 2. History of psoriasis. 3. Diabetes mellitus. 4. Hyperlipidemia. HOSPITAL COURSE: The patient presented to [facility] on 05/05/18 for chest pain with underlying history of hypertension, hyperlipidemia, obesity , and psoriasis stating that he has been having exertional chest discomfort and tightness over the past weekend. Whenever he tries to get up and move and exert himself, he gets lightheaded, he gets sweaty and tightness in his chest. He stated he has not been feeling well. He stopped doing the exertion because it was limiting him from doing his activity. He actually was in the hospital on Saturday, emergency room and he declined the stress test, went home and given his symptoms did not improve over the weekend, he returned to the emergency room. The patient states that during my interview this morning, he had no pain. He has been comfortable. He underwent stress nuclear test this morning and the result reveals no significant evidence of severe ischemia. Assessment was low risk. His labs revealed negative troponin x3. Therefore, the patient was seen and evaluated for stress test. He tolerated it much well with no chest pain. He was deemed stable for discharge with followup with his primary care provider and further discuss whether or not to be referred to cardiology for further invasive testing, but at this time, I deem the patient is stable for discharge and outpatient workup. PHYSICAL EXAM: His vital signs reveal temperature 97.4, pulse 69, respiratory rate 16, satting 98%, blood pressure 138/88. Generally, he is awake, alert, oriented, in no distress. Following all commands. Abdomen: Positive bowel sounds. Soft, nontender, nondistended. Extremities: No pedal edema. He does have significant psoriatic rash all over his extremity. WALLPAPER HANGER: There is no motor or focal sensory deficit. DIAGNOSTIC TESTS: A nuclear stress test, which was negative. Chest x-ray, no acute disease. EKG shows sinus rhythm, good R wave progression, no acute ST or T wave changes. DISCHARGE MEDICATIONS: Continue his home medications: 1. Metformin 500 b.i.d. 2. Omeprazole 20 daily. 3. Lisinopril 5 daily. 4. Gemfibrozil 600 mg every day. 5. Aspirin 81 mg daily. DISCHARGE INSTRUCTIONS: The patient is to follow up with Dr. Srini Hogan in 1 to 2 weeks. [id number]/[facility] #: [id number] [facility]
== END 2018-05-06 13:40 | disposition home or self-care (01) ==
LOC: ED 14:36 → MEDTELE 19:08
PROVIDERS: ADMIT Internal Medicine; ATTEND Internal Medicine
DX: R07.9 Chest pain, unspecified (principal); E11.9 Type 2 diabetes mellitus without complications; I10 Essential (primary) hypertension; E78.5 Hyperlipidemia, unspecified; K21.9 Gastro-esophageal reflux disease without esophagitis; Z79.82 Long term (current) use of aspirin; Z79.899 Other long term (current) drug therapy; Z87.891 Personal history of nicotine dependence; Z82.49 Family history of ischemic heart disease and other diseases of the circulatory system
CPT/HCPCS: 36415; 71045; 78452; 80048; 80053; 80061; 83036; 83735; 83880; 84443; 84484; 85025; 85379; 85610; 85730; 93005; 93017; 96365; 96372; 99284; A9270-GY; A9502; G0378; J1644; J3475